=== PATIENT | female | born 1955 | race African-American/Black ===

== ENCOUNTER 2017-07-27 14:27 | Emergency (ER) | payer MEDICARE, MEDICAID ==
[2017-07-27] MEDS: HYDROmorphONE 0.5 MG/0.5 ML SYG IM (15:27)
[2017-07-27] MEDS: ONDANSETRON 4 MG INJ IV (15:27)
[2017-07-27 15:47] LABS: ADD MAN DIFF? NO
[2017-07-27 15:54] LABS: BASOPHIL # 0.1 10^3/ul (0.0-0.1); BASOPHILS % 0.9 % (0.0-2.0); EOSINOPHILS # 0.6 10^3/ul (0.0-0.5); EOSINOPHILS % 10.6 % (0.0-7.0); HEMATOCRIT 28.8 % (37.0-47.0); HEMOGLOBIN 9.1 g/dl (12.0-16.0); LYMPHOCYTES # 1.1 10^3/ul (0.8-2.9); MEAN CORPUSCULAR HEMOGLOBIN 31.3 pg (29.0-33.0); MEAN CORPUSCULAR HGB CONC 31.6 g/dl (32.0-37.0); MONOCYTE # 0.8 10^3/ul (0.3-0.9); MONOCYTES % 14.4 % (0.0-11.0); NEUTROPHIL # 3.3 10^3/ul (1.6-7.5); NEUTROPHILS % 55.9 % (39.0-77.0); PLATELET COUNT 153 10^3/UL (140-415); RED BLOOD COUNT 2.91 10^6/ul (4.20-5.40); RED CELL DISTRIBUTION WIDTH 14.2 % (11.5-14.5)
[2017-07-27 15:54] LABS: WHITE BLOOD COUNT 5.8 10^3/ul (4.8-10.8)
[2017-07-27 16:11] LABS: ANION GAP 20 (8-16); BLOOD UREA NITROGEN 62 mg/dl (7-20); CARBON DIOXIDE 27 mmol/L (21-31); CHLORIDE 97 mmol/L (97-110); CREATININE 8.82 mg/dl (0.44-1.00); GLUCOSE 157 mg/dl (70-220); POTASSIUM 3.8 mmol/L (3.5-5.1); SODIUM 140 mmol/L (135-144)
[2017-07-27 16:12] LABS: INR 1.11; PROTIME 14.5 Sec (11.9-14.9); PT RATIO 1.1
[2017-07-27 16:13] LABS: PARTIAL THROMBOPLASTIN TIME 35.3 Sec (25.0-35.0)
[2017-07-27] MEDS: HYDROmorphONE 0.5 MG/0.5 ML SYG IV (17:56)
== END 2017-07-27 17:25 | disposition home or self-care (01) ==
LOC: E/R 14:27
DX: M79.81 Nontraumatic hematoma of soft tissue (principal); D64.9 Anemia, unspecified; I12.9 Hypertensive chronic kidney disease with stage 1 through stage 4 chronic kidney disease, or unspecified chronic kidney disease; N18.9 Chronic kidney disease, unspecified; J45.909 Unspecified asthma, uncomplicated; Z96.641 Presence of right artificial hip joint; Z96.651 Presence of right artificial knee joint
CPT/HCPCS: 76882; 76882-RT; 80048; 85025; 85610; 85730; 93005; 96372; 96374; 96375; 99285-25

== ENCOUNTER 2017-11-28 08:19 | Emergency (ER) | payer MEDICARE ==
[2017-11-28] MEDS: METHYLPREDNISOLONE 125 MG INJ IM (09:00)
[2017-11-28] MEDS: IPRATROPIUM (NEB) 0.5 MG/2.5 ML AMP NEB (09:00)
[2017-11-28] MEDS: ALBUTEROL 0.083% (NEB) 2.5 MG/3 ML AMP NEB (09:00)
[2017-11-28 09:44] LABS: ADD MAN DIFF? NO
[2017-11-28 09:46] LABS: BASOPHILS % 0.6 % (0.0-2.0); EOSINOPHILS # 1.7 10^3/ul (0.0-0.5); EOSINOPHILS % 24.6 % (0.0-7.0); HEMATOCRIT 33.8 % (37.0-47.0); HEMOGLOBIN 11.1 g/dl (12.0-16.0); LYMPHOCYTES # 1.7 10^3/ul (0.8-2.9); LYMPHOCYTES % 24.1 % (15.0-51.0); MEAN CORPUSCULAR HEMOGLOBIN 29.4 pg (29.0-33.0); MEAN CORPUSCULAR HGB CONC 32.8 g/dl (32.0-37.0); MEAN CORPUSCULAR VOLUME 89.7 fl (82.0-101.0); MEAN PLATELET VOLUME 10.1 fl (7.4-10.4); MONOCYTE # 0.9 10^3/ul (0.3-0.9); MONOCYTES % 13.2 % (0.0-11.0); NEUTROPHIL # 2.6 10^3/ul (1.6-7.5); NEUTROPHILS % 37.4 % (39.0-77.0); PLATELET COUNT 172 10^3/UL (140-415); RED BLOOD COUNT 3.77 10^6/ul (4.20-5.40); RED CELL DISTRIBUTION WIDTH 14.6 % (11.5-14.5)
[2017-11-28 09:46] LABS: WHITE BLOOD COUNT 6.9 10^3/ul (4.8-10.8)
[2017-11-28 10:08] LABS: ALANINE AMINOTRANSFERASE 14 IU/L (13-69); ALBUMIN 4.2 g/dl (3.3-4.9); ALBUMIN/GLOBULIN RATIO 1.02; ALKALINE PHOSPHATASE 161 IU/L (42-121); ANION GAP 22 (8-16); ASPARTATE AMINO TRANSFERASE 22 IU/L (15-46); BILIRUBIN,INDIRECT 0.1 mg/dl (0-1.1); BILIRUBIN,TOTAL 0.1 mg/dl (0.2-1.3); BLOOD UREA NITROGEN 75 mg/dl (7-20); CALCIUM 10.2 mg/dl (8.4-10.2); CARBON DIOXIDE 25 mmol/L (21-31); CHLORIDE 97 mmol/L (97-110); CREATININE 10.46 mg/dl (0.44-1.00); GLUCOSE 100 mg/dl (70-220); SODIUM 140 mmol/L (135-144); TOTAL PROTEIN 8.3 g/dl (6.1-8.1)
== END 2017-11-28 10:54 | disposition home or self-care (01) ==
LOC: FTE 08:19
DX: J45.901 Unspecified asthma with (acute) exacerbation (principal); I12.0 Hypertensive chronic kidney disease with stage 5 chronic kidney disease or end stage renal disease; N18.6 End stage renal disease; Z99.2 Dependence on renal dialysis; Z96.641 Presence of right artificial hip joint; Z96.651 Presence of right artificial knee joint
CPT/HCPCS: 71045; 80053; 85025; 94644; 96372; 99284-25

== ENCOUNTER 2018-04-18 05:39 | Emergency (ER) | payer MEDICARE ==
[2018-04-18 06:28] LABS: ADD MAN DIFF? NO
[2018-04-18 06:33] LABS: BASOPHILS % 0.3 % (0.0-2.0); EOSINOPHILS # 0.8 10^3/ul (0.0-0.5); EOSINOPHILS % 11.2 % (0.0-7.0); HEMATOCRIT 26.6 % (37.0-47.0); HEMOGLOBIN 8.9 g/dl (12.0-16.0); LYMPHOCYTES # 0.7 10^3/ul (0.8-2.9); LYMPHOCYTES % 9.9 % (15.0-51.0); MEAN CORPUSCULAR HGB CONC 33.5 g/dl (32.0-37.0); MEAN CORPUSCULAR VOLUME 95.7 fl (82.0-101.0); MEAN PLATELET VOLUME 9.2 fl (7.4-10.4); MONOCYTE # 1.1 10^3/ul (0.3-0.9); MONOCYTES % 15.8 % (0.0-11.0); NEUTROPHIL # 4.4 10^3/ul (1.6-7.5); NEUTROPHILS % 62.7 % (39.0-77.0); PLATELET COUNT 144 10^3/UL (140-415); RED BLOOD COUNT 2.78 10^6/ul (4.20-5.40); RED CELL DISTRIBUTION WIDTH 13.6 % (11.5-14.5)
[2018-04-18] MEDS: LABETALOL HCL 20MG INJ IV (06:42)
[2018-04-18 06:58] LABS: ANION GAP 18 (5-13); BLOOD UREA NITROGEN 73 mg/dl (7-20); CALCIUM 9.9 mg/dl (8.4-10.2); CARBON DIOXIDE 26 mmol/L (21-31); CHLORIDE 98 mmol/L (97-110); CREATININE 12.26 mg/dl (0.44-1.00); Estimated GFR 4 mL/min (>60); GLUCOSE 88 mg/dl (70-220); POTASSIUM 4.5 mmol/L (3.5-5.1); SODIUM 142 mmol/L (135-144)
[2018-04-18 07:09] LABS: TROPONIN-I < 0.012 ng/ml (0.000-0.120)
[2018-04-18] MEDS: METHYLPREDNISOLONE 125 MG INJ IV (07:22)
[2018-04-18] MEDS: TERBUTALINE 1 MG/ML INJ SC (07:23)
[2018-04-18] MEDS: ALBUTEROL 0.083% (NEB) 2.5 MG/3 ML AMP NEB (07:32)
== END 2018-04-18 10:18 | disposition home or self-care (01) ==
LOC: E/R 05:39
DX: J45.901 Unspecified asthma with (acute) exacerbation (principal); N18.6 End stage renal disease; I12.0 Hypertensive chronic kidney disease with stage 5 chronic kidney disease or end stage renal disease; Z96.641 Presence of right artificial hip joint; Z96.651 Presence of right artificial knee joint; Z99.2 Dependence on renal dialysis
CPT/HCPCS: 36415; 71045; 80048; 84484; 85025; 93005; 94664; 96372; 96374; 96375; 99285-25

== ENCOUNTER 2018-08-31 10:48 | Emergency (ER) | payer MEDICARE, MEDICAID ==
[2018-08-31] MEDS: METHYLPREDNISOLONE 125 MG INJ IV (11:21)
[2018-08-31] MEDS: ALBUTEROL 0.083% (NEB) 2.5 MG/3 ML AMP HHN (11:27)
[2018-08-31] MEDS: IPRATROPIUM (NEB) 0.5 MG/2.5 ML AMP HHN (11:27)
== END 2018-08-31 12:35 | disposition home or self-care (01) ==
LOC: FTE 10:48
DX: J45.901 Unspecified asthma with (acute) exacerbation (principal); I12.0 Hypertensive chronic kidney disease with stage 5 chronic kidney disease or end stage renal disease; N18.6 End stage renal disease; Z96.651 Presence of right artificial knee joint
CPT/HCPCS: 71045; 94664; 96374; 99284-25